=== PATIENT | female | born 1985 | race Caucasian/White ===

== ENCOUNTER 2017-08-18 05:05 | Inpatient (IN) | payer OTHER ==
[2017-08-18 05:23] VITALS: BMI 34.7
[2017-08-18] MEDS ORDERED: Lactated Ringer's 1,000 ML IV SCH ×2 (05:30→13:07)
[2017-08-18] MEDS: Lactated Ringer's 1,000 ML IV SCH ×2 (05:40→06:49)
[2017-08-18 06:15] LABS: BASO % 0.3 % (0.0-2.0); EOS # 0.1 K/uL (0.0-0.7); EOS % 1.1 % (0.0-4.0); HEMOGLOBIN 13.7 g/dL (12.0-16.0); LYMPH # 1.6 K/uL (1.0-4.3); LYMPH % 19.3 % (20.0-40.0); MEAN CELL VOLUME 94.1 fl (81.0-99.0); MEAN CORPUSCULAR HEMOGLOBIN 33.2 pg (27.0-31.0); MEAN CORPUSCULAR HGB CONC 35.3 g/dL (33.0-37.0); MEAN PLATELET VOLUME 8.4 fl (7.2-11.7); MONO # 0.6 K/uL (0.0-0.8); MONO % 7.1 % (0.0-10.0); NEUT # 6.1 K/uL (1.8-7.0); NEUT % 72.2 % (50.0-75.0); NRBC % 0.1 % (0.0-0.0); RBC 4.14 Mil/uL (3.80-5.20); RED CELL DISTRIBUTION WIDTH 13.3 % (11.5-14.5); WHITE BLOOD COUNT 8.5 K/uL (4.8-10.8)
[2017-08-18 06:28] VITALS: O2SAT 98
[2017-08-18] MEDS ORDERED: Oxytocin 30 units/LR 500ML 30 U/500 ML BAG IV ONE (06:49)
[2017-08-18] MEDS ORDERED: Phenylephrine 10 mg/ml Inj ONE (07:24)
[2017-08-18] MEDS ORDERED: ePHEDrine 50 mg/ml Inj ONE (07:24)
[2017-08-18] MEDS ORDERED: Morphine 1 mg/ml preservative-free Inj(Duramorph) ONE (07:25)
--- NOTE | 2017-08-18 07:55 | OBADHP ---
Datetime: 08/18/2017 07:50 IP Chief Complaint Other: gest DM diet Admit Comment, IP Provider: for RC/S declined BTL Abdomen - PN: Abnormal Back - PN: Normal Breast - PN: Normal Lungs - PN: Normal Thyroid - PN: Normal Neurologic - PN: Normal HEENT - PN: Normal General - PN: Normal FHR - Baseline A Provider: 140 Membranes, Provider: Ruptured Comments, ACOG Physical Exam: Abd gravid fundus at term NT, ext no calf tenderness Gestation - Est Wks by US: 39.0 IP Hx Assessment: The History has been Reviewed and is Current IP Chief Complaint: Uterine contractions; Scheduled Section NICHD Variability Prov Fetus A: Minimal - Undetectable to <5bpm NICHD Decel Fetus A IP Provider: None Dilatation, Provider: LUKE BAILON AdmitDate IP: 39.1 IP Adm Impression: Term, intrauterine IP Admit Plan: Admit to unit; Initiate Section protocol
[2017-08-18] MEDS ORDERED: Esmolol 100 mg/10ml Inj IV ONE (09:05)
[2017-08-18] MEDS ORDERED: Oxycodone/Acetaminophen 5/325 mg Tab PO PRN ×4 (09:28→13:07)
[2017-08-18] MEDS ORDERED: DiphenhydrAMINE 50 mg/ml Inj IVP PRN ×2 (09:28→13:07)
--- NOTE | 2017-08-18 10:10 | OBDS ---
DELIVERY PERSONNEL Delivery Doctor: Cal Anguiano MD Scrub Nurse: Lila Sandoval OBT Telephone Operator: Gail Cuenca RN Anesthesiologist: Brian Light MD MATERNAL INFORMATION Delivery Anesthesia: Spinal Medications in Delivery: Pitocin 30 units Estimated Blood Loss (ml): 800 Placenta Cultured: No Maternal Complications: None Provider Comments: see dictated surgeons note LABOR SUMMARY EDC: 08/24/2017 00:00 No. Babies in Womb: 1 Attempted: No LABOR INFORMATION Reason for Induction: Not Applicable Oxytocin: N/A Group B Beta Strep: Positive Steroids Given: None Reason Steroids Not Administered: Not Applicable MEMBRANES Membranes Rupture Method: Artificial Rupture of Membranes: 08/18/2017 09:10 Length of Rupture (hrs): 0.02 Amniotic Fluid Color: Clear Amniotic Fluid Amount: Moderate Amniotic Fluid Odor: Normal STAGES OF LABOR Stage 3 hrs: 0 Stage 3 min: 1 VAGINAL DELIVERY Episiotomy: None Laceration Extension: N/A Laceration Type: None Laceration Repair: Not Applicable Sponge Count Correct: Yes Sharps Count Correct: Yes Count Comment: count correct x3 CSECTION DELIVERY Primary Indication: Repeat Elective Secondary Indication: > 2 Previous CSections CSection Urgency: Elective CSection Incidence: Repeat Labor: No Labor Elective: Elective CSection Incision: Lower Uterine Transverse Uterine Closure: Double-layer closure BABY A INFORMATION Infant Delivery Date/Time: 08/18/2017 09:11 Method of Delivery: Born in Route : No : N/A Forceps: N/A Vacuum Extraction: N/A SHOULDER DYSTOCIA BABY A Infant Delivery Date/Time: 08/18/2017 09:11 PRESENTATION/POSITION BABY A Presentation: Cephalic Cephalic Presentation: Vertex Breech Presentation: N/A PLACENTA INFORMATION BABY A Placenta Delivery Time : 08/18/2017 09:12 Placenta Method of Delivery: Spontaneous Placenta Status: Delivered SCORES BABY A Heart Rate 1 min: >100 bpm Resp Effort 1 min: Good Cry Reflex Irritability 1 min: Cough or Sneeze or Pulls Away Muscle Tone 1 min: Active Motion Color 1 min: Body [place], Extremities Blue Resuscitation Effort 1 min: Tactile Stimulation SCORE 1 MIN: 9 Heart Rate 5 min: >100 bpm Resp Effort 5 min: Good Cry Reflex Irritability 5 min: Cough or Sneeze or Pulls Away Muscle Tone 5 min: Active Motion Color 5 min: Body [place], Extremities Blue Resuscitation Effort 5 min: Tactile Stimulation SCORE 5 MIN: 9 INFANT INFORMATION BABY A Gestational Age at Delivery: 39.0 Gestational Status: Term Infant Outcome : Liveborn Condition : Stable Sex: Male IDENTIFICATION/MEDS BABY A ID Band Number: [id number] ID Band Location: Left Leg; Left Arm WEIGHT/LENGTH BABY A Infant Birthweight (gms): 3240 Infant Weight (lb): 7 Weight (oz): 2 CORD INFORMATION BABY A No. Cord Vessels: 3 Nuchal Cord : N/A Cord Blood Taken: N/A Suction: None ASSESSMENT BABY A Complications: Multiple Late Decels Physical Findings at Delivery: Within Normal Limits Respirations: Grunting Timber Watchman/ALS Called : No Infant Care By: Darlin Haywood Transferred To: Nursery
[2017-08-18] MEDS ORDERED: Clindamycin 600mg/50ml NS 600 MG/50 ML BAG IVPB SCH (10:15)
--- NOTE | 2017-08-18 11:14 | OBPPN ---
Datetime: 08/18/2017 11:07 PP Pain Prov: Within normal limits PP Nausea Prov: Denies PP Flatus Prov: No PP BM Prov: No PP Abdomen/Uterus Prov: Normal PP Vulva/Perineum Prov: Abnormal PP C/S Incision Prov: Normal PP Comments Phys Exam Prov: Pulse 115 BP 109/64 PP Progress Note Prov: Asked to check this paitent (PVT Dr Anguiano) sectioned this morning She had some VB...given IV Pitocin No dizziness IN NAD Abd bandage clean dry intact uterus firm SVE : scant blood noted red; no blood clots A: S/P ...spoke with PMD: will given Methergine/check labs (CB/Pt/PTT) Vital Signs Provider PP: Reviewed; Within Normal Limits
[2017-08-18 11:28] LABS: MEAN CELL VOLUME 95.2 fl (81.0-99.0); MEAN CORPUSCULAR HEMOGLOBIN 32.8 pg (27.0-31.0); MEAN CORPUSCULAR HGB CONC 34.5 g/dL (33.0-37.0); RBC 3.94 Mil/uL (3.80-5.20); RED CELL DISTRIBUTION WIDTH 13.7 % (11.5-14.5); WHITE BLOOD COUNT 10.3 K/uL (4.8-10.8)
[2017-08-18 11:38] LABS: PARTIAL THROMBOPLASTIN TIME 27.2 Seconds (25.6-37.1); PROTHROMBIN TIME 11.1 Seconds (9.8-13.1)
[2017-08-18] MEDS: Clindamycin 600mg/50ml NS 600 MG/50 ML BAG IVPB SCH (16:08)
[2017-08-19] MEDS: Clindamycin 600mg/50ml NS 600 MG/50 ML BAG IVPB SCH (01:00)
[2017-08-19 06:45] LABS: HEMOGLOBIN 11.4 g/dL (12.0-16.0); MEAN CELL VOLUME 94.5 fl (81.0-99.0); MEAN CORPUSCULAR HEMOGLOBIN 33.8 pg (27.0-31.0); MEAN CORPUSCULAR HGB CONC 35.7 g/dL (33.0-37.0); RBC 3.36 Mil/uL (3.80-5.20); RED CELL DISTRIBUTION WIDTH 13.7 % (11.5-14.5); WHITE BLOOD COUNT 10.6 K/uL (4.8-10.8)
--- NOTE | 2017-08-19 09:18 | OBPPN ---
Datetime: 08/19/2017 09:13 PP Pain Prov: Within normal limits PP Pain Prov comment: Denies SOB, chest or leg pains PP Nausea Prov: Denies PP Nausea Prov comment: voided well PP Breasts Prov: Normal PP Lungs Prov: Normal PP Abdomen/Uterus Prov: Abnormal PP Lochia Prov: Normal PP Vulva/Perineum Prov: Normal PP CVA Tenderness Prov: Normal PP Extremities Prov: Normal PP C/S Incision Prov: Normal PP Progress Prov: Normal PP Comments Phys Exam Prov: breast not engorged Abd soft ND fundus firm below the umb. Dressing int act no sign of active bleeding Lokia mod, ext no calf tenderness PP Impression Prov: Normal progression PP Plan Prov: Continue present management PP Progress Note Prov: CBC stable Advance diet as tolerated OOB and ambulation Continue po care IP PP Procedures: None
--- NOTE | 2017-08-20 07:49 | OBPPN ---
Datetime: 08/20/2017 07:44 PP Pain Prov: Within normal limits PP Pain Prov comment: No SOB, chest or leg pains PP Nausea Prov: Denies PP Flatus Prov: Yes PP BM Prov: No PP Nausea Prov comment: Voiding well PP Breasts Prov: Normal PP Lungs Prov: Normal PP Abdomen/Uterus Prov: Abnormal PP Lochia Prov: Normal PP Vulva/Perineum Prov: Normal PP CVA Tenderness Prov: Normal PP Extremities Prov: Normal PP C/S Incision Prov: Normal PP Progress Prov: Normal PP Comments Phys Exam Prov: breast not engorged NT; Abd soft nd, fundus firm below umb Dressing intact removed and no active bleeding or suppt Ext n o calf tenderness PP Impression Prov: Normal progression PP Plan Prov: Continue present management PP Progress Note Prov: Dulcolax suppt and OOB and ambulation Continue PO care IP PP Procedures: None Vital Signs Provider PP: Reviewed
--- NOTE | 2017-08-21 08:28 | OP ---
PROCEDURE DATE: 08/18/2017 PREOPERATIVE DIAGNOSES: 1. at term. 2. Previous section x2 in early labor. POSTOPERATIVE DIAGNOSES: 1. at term. 2. Previous section x2 in early labor. 3. Pelvis adhesion. PROCEDURE PERFORMED: Repeat low transverse segment section. SURGEON: Jesus Anguiano MD SECURITY OFFICERS AND GUARDS: Ricki Lloyd MD who was there for the entire duration of the case. Framing Machine Tender needed in order to provide assistance in positioning the patient, opening of the abdomen, delivery of the baby, and closure of the abdomen. ANESTHESIA USED: Spinal. ANESTHESIA ADMINISTERED BY: Alfonso Light MD ESTIMATED BLOOD LOSS: 800 mL. DRAINS USED: None. REPLACEMENTS USED: None. FINDINGS: 1. Delivery of a living baby boy, baby appears term, baby cried spontaneously. Pediatrist in attendance. Apgars score of 9 and 9. 2. Amniotic fluid clear. 3. Placenta complete and intact. 4. Both tubes and ovaries appeared grossly within normal limits to inspection bilaterally. 5. Adhesion of the bladder to the lower abdominal wall noted to be present. DESCRIPTION OF PROCEDURE: The patient was taken to the operating room and placed on the operating room table in a supine position with an indwelling Stern catheter in the bladder draining clear fluid. At this time, spinal anesthesia was then induced and the patient was then replaced in the supine position. Venodyne boots were applied to both legs. The abdomen was then draped and prepped in the usual sterile manner. Following this, anesthesia tested and found to be well secured and a Pfannenstiel incision was then made along the edges of the previous incision. The incision was made using sharp dissection. Hemostasis was obtained by means of electrocoagulation. Subcutaneous tissue was also entered using sharp dissection. The fascia was then identified, was then entered in the midline using sharp dissection. The incision of the fascia was then extended laterally on each direction using sharp dissection. The rectus muscle was then identified and was then slit in the midline, exposing the peritoneum. The peritoneal layer was then picked up using 2 Arelis clamps, retracted superiorly, and then entered using sharp dissection. Incision on the peritoneum was then extended superiorly and inferiorly under direct visualization. Bladder was then identified and adhesions to the lower abdominal area noted to be present and the bladder was then retracted inferiorly using the Andrea retractor. The lower transverse segment of the uterus was then identified and an incision was then made in the low transverse segment of the uterus. Upon entering the uterine cavity, clear fluid noted to be present. At this time, we then proceeded to extending the incision laterally using sharp dissection. Using amnioscopy procedure, a living baby boy was then delivered. The baby was immediately aspirated using the bulb suction. The baby cried spontaneously. The umbilicus was then doubly clamped, cut, and the baby handed to the pediatric personnel who was standing by. Samples of cord blood were then obtained and the placenta was then delivered complete and intact. The uterus was then exteriorized in order to provide better visualization. Uterus was massaged and the uterine cavity was then cleaned using moist lap pads. At this time, the uterus contracted well. Uterine incision was then secured using multiple T clamps. It was then approximated using 0 Vicryl suture in a continuous interlocking manner. The second layer was also applied using a Vicryl suture in a continuous manner. Hemostasis was checked and found to be well secured. Both tubes and ovaries appeared at this time grossly within normal limits to inspection bilaterally. Following this, free amniotic fluid and blood were then evacuated from the pelvic cavity. The pelvic cavity was then irrigated using saline solution. The uterus was allowed to retract back into its original position. All operative areas were checked and hemostatically secured and we then proceeded to close the peritoneum using 0 Vicryl suture in a continuous manner. Rectus muscle was approximated at the midline also using 0 Vicryl suture in a continuous manner. At this time, the fascia was then identified, it was then approximated using 1 Vicryl suture in a continuous manner. Fascia was then checked and found to be free of defect. Subcutaneous tissue was then irrigated using saline solution and approximated using several interrupted 2-0 plain sutures. The skin was then approximated using a 3-0 Prolene in a subcuticular fashion. Steri-Strips were then applied. At this time, sponge, instrument, and needle counts were correct x3. Free fluid noted in the Stern catheter clear. The patient tolerated the procedure well. There were no complications. She was transferred to the recovery room in satisfactory condition. Jesus Anguiano MD [facility] # [id number] [place]
--- NOTE | 2017-08-21 10:38 | OBPPN ---
Datetime: 08/21/2017 10:34 PP Pain Prov: Within normal limits PP Pain Prov comment: No SOB, chest or leg pains PP Nausea Prov: Denies PP Flatus Prov: Yes PP BM Prov: Yes PP Nausea Prov comment: voiding well PP Breasts Prov: Normal PP Lungs Prov: Normal PP Abdomen/Uterus Prov: Abnormal PP Lochia Prov: Normal PP Vulva/Perineum Prov: Normal PP CVA Tenderness Prov: Normal PP Extremities Prov: Normal PP C/S Incision Prov: Normal PP Progress Prov: Normal PP Comments Phys Exam Prov: breast not engorged NT, abd soft ND fundus firm at umb NT, incision lisa n and dry no suppt or discharge no active bleeding no sign of infection Ext no calf tenderness PP Impression Prov: Normal progression PP Plan Prov: Discharge PP Progress Note Prov: D/C home with instructions and appt to office 1 wk IP PP Procedures: None Vital Signs Provider PP: Reviewed
--- NOTE | 2017-08-21 10:41 | OBDCSUM ---
Datetime: 08/21/2017 10:38 Discharged to, Provider: Home Follow up at, Provider: Dr Silvio Comer Instr Activity: Bedrest; May be up to bathroom; May be up for meals; May Shower Disch Instr Diet: Regular Discharge Instructions, Provider: Routine instructions given Discharge Diagnosis, Provider: Term Delivered Discharge Time: 08/21/2017 10:38 Follow up in weeks, Provider: 1 wk Disch Referrals: None Contraception discussed, Prov: Yes Disch Activity Restrictions: No exercising; No lifting; No driving; Minimize walking; Minimize stair -climbing; No sexual activity; Nothing in vagina - Smyer, tampons, douche Discharge Comment, Provider: rx Percocet given and continue po care Contraception after Delivery: Undecided Datetime: 08/21/2017 10:35 Discharged to, Provider: Home Follow up at, Provider: Dr. Silvio Comer Instr Activity: Normal activity Disch Instr Diet: Regular Discharge Time: 08/21/2017 12:00 Follow up in weeks, Provider: 1 Week Disch Referrals: None Disch Activity Restrictions: No sexual activity; Nothing in vagina - Smyer, tampons, douche
[2017-08-21 15:48] VITALS: BP 105/64; PULSE 81; RESP 20; TEMP 98.2
== END 2017-08-21 11:38 | disposition home or self-care (01) | DRG 371 ==
LOC: H.EROB2 05:05 → H.L&D 05:22 → H.OB/GYN 12:49
PROVIDERS: ADMIT Specialist; ATTEND Specialist
PROC: 10D00Z1 Extraction of Products of Conception, Low, Open Approach (ICD-10-PCS; principal; 2017-08-18)
PROC: 4A1HXCZ Monitoring of Products of Conception, Cardiac Rate, External Approach (ICD-10-PCS; 2017-08-18)
DX: O34.219 Maternal care for unspecified type scar from previous cesarean delivery (principal); O24.429 Gestational diabetes mellitus in childbirth, unspecified control; N85.8 Other specified noninflammatory disorders of uterus; O76 Abnormality in fetal heart rate and rhythm complicating labor and delivery; K66.0 Peritoneal adhesions (postprocedural) (postinfection); Z37.0 Single live birth; Z3A.39 39 weeks gestation of pregnancy

== ENCOUNTER 2017-09-16 10:22 | Emergency (ER) | payer OTHER ==
[2017-09-16 10:24] VITALS: BMI 29.2
[2017-09-16] MEDS ORDERED: Clindamycin 600mg/50ml D5W 600 MG/50 ML VIAL IVPB ONE (12:00)
[2017-09-16] MEDS ORDERED: Sodium Chloride 0.9% 1,000 ML IV SCH (12:00)
--- NOTE | 2017-09-16 12:00 | ED PDOC ---
HPI: Abdomen Time Seen by Provider: 09/16/17 11:02 Chief Complaint (Nursing): Abdominal Pain Chief Complaint (Provider): Cellulitis History Per: Patient History/Exam Limitations: no limitations Onset/Duration Of Symptoms: Days (4), Gradual, Worse Since (three days) Outside of [place] travel?: No Current Symptoms Are (Timing): Still Present Context: Other (pt believes it is associated with a surgical incision made about 08/16 (one month ago)) Severity: Mild Quality Of Discomfort: Aching Associated Symptoms: Fever (fever resolved on presentation). denies: Nausea, Vomiting, Diarrhea Exacerbating Factors: None Last Bowel Movement: Today Additional Complaint(s): Pt had a performed 08/16 (one month ago from presentation) and presents today with a concern for pain under her incision, erythema and warmth; pt denies NVD but does indicate that she had a fever of 101 last evening (pt is afebrile without medication on presentation); pt denies other complaints and indicates that her baby is doing well and is . Pt notes an allergy to PCN Past Medical History Reviewed: Historical Data, Nursing Documentation, Vital Signs Vital Signs: Last Vital Signs Temp 98.4 F 09/16/17 10:25 Pulse 100 H 09/16/17 10:25 Resp 17 09/16/17 10:25 BP 113/73 09/16/17 10:25 Pulse Ox 100 09/16/17 14:58 - Medical History PMH: Denies: Depression, Diabetes, HTN - Surgical History Surgical History: Cholecystectomy, Tonsillectomy - Family History Family History: States: Unknown Family Hx - Home Medications Home Medications: Ambulatory Orders Medication Instructions Recorded Clindamycin [Cleocin] 300 mg PO QID #40 cap 09/16/17 - Allergies Allergies/Adverse Reactions: Allergies Allergy/AdvReac Type Severity Reaction Status Date / Time Penicillins Allergy Mild RASH Verified 09/16/17 10:33 Review of Systems ROS Statement: Except As Marked, All Systems Reviewed And Found Negative Skin: Positive for: Other (warmth and erythema underlying area of and approximately 7cm in diameter; region marked with surgical marking pen at 1200 and noted as 09/16) Physical Exam - Reviewed Nursing Documentation Reviewed: Yes Vital Signs Reviewed: Yes - Physical Exam Appears: Positive for: Well, Non-toxic, No Acute Distress. Negative for: Uncomfortable Head Exam: Positive for: ATRAUMATIC, NORMAL INSPECTION, NORMOCEPHALIC Skin: Positive for: Warm, Pallor (warmth and erythema underlying area of c- section and approximately 7cm in diameter; region marked with surgical marking pen at 1200 and noted as /25) Neck: Positive for: Normal, Painless ROM, Supple. Negative for: Decreased ROM Cardiovascular/Chest: Positive for: Regular Rate, Rhythm, Chest Non Tender. Negative for: Edema, Gallop, Bradycardia, Tachycardia, Ectopy, Friction Rub Respiratory: Positive for: Normal Breath Sounds. Negative for: Decreased Breath Sounds, Accessory Muscle Use, Crackles, Rales, Rhonchi, Stridor, Wheezing , Respiratory Distress Pulses-Carotid (L): 2+ Pulses-Carotid (R): 2+ Pulses-Post. Tibialis (L): 2+ Pulses-Post. Tibialis (R): 2+ Pulses-Radial (L): 2+ Pulses-Radial (R): 2+ Gastrointestinal/Abdominal: Positive for: Normal Exam, Bowel Sounds (active in all four quadrants), Soft, Other (see "skin" above). Negative for: Tenderness, Distended Lymphatic: Positive for: Normal Exam - Laboratory Results Result Diagrams: 09/16/17 12:00 09/16/17 12:00 - ECG O2 Sat by Pulse Oximetry: 100 Medical Decision Making Medical Decision Making: R/o Abscess Suspect Cellulitis U/S CBC CMP no clinically significant findings in blood worl U/S Results PROCEDURE: Subcutaneous/ soft tissue ultrasound dated 09/16/2017. HISTORY: Cellulitis; rule out abscess. COMPARISON: No relevant prior studies available for comparison although correlation made with CT scan chest abdomen pelvis dated 10/07/2013 which did image the subcutaneous tissues of the lower abdomen and upper pelvis 3 planes. TECHNIQUE: Transabdominal ultrasound of the targeted to the subcutaneous tissues mid lower abdomen/ upper pelvis region just inferior to the umbilicus performed. FINDINGS: The current study reveals mild heterogeneous infiltration changes within the subcutaneous tissues of the mid lower abdomen/ upper pelvis which could represent a localized cellulitis. No drainable fluid or abscess collections are identified. IMPRESSION: Mild infiltration changes within the subcutaneous tissues mid lower abdomen/ upper pelvis which may represent cellulitis. No drainable fluid or abscess collections identified. Dx- Cellulitis without abscess Tx- clidamycin (due to breast feeding) Disposition - Clinical Impression Clinical Impression: Cellulitis Discussed With Dr.: Jesus Anguiano (agrees with the plan to ultrasound, IV abx and release on PO abx) Doctor Will See Patient In The: Office - Disposition Disposition: Routine/Home Disposition Time: 15:01 Condition: GOOD Prescriptions: Clindamycin [Cleocin] 300 mg PO QID #40 cap Instructions: Cellulitis and Erysipelas (Skin Infections), Cellulitis (Skin Infection), Adult (DC) Forms: [facility] (Ukrainian)
[2017-09-16] MEDS ORDERED: Clindamycin 600mg/50ml NS 600 MG/50 ML BAG IVPB ONE (12:01)
[2017-09-16 12:07] LABS: BASO # 0.1 K/uL (0.0-0.2); BASO % 0.6 % (0.0-2.0); EOS # 0.2 K/uL (0.0-0.7); EOS % 2.1 % (0.0-4.0); HEMOGLOBIN 12.8 g/dL (12.0-16.0); LYMPH # 1.3 K/uL (1.0-4.3); LYMPH % 12.7 % (20.0-40.0); MEAN CELL VOLUME 89.8 fl (81.0-99.0); MEAN CORPUSCULAR HGB CONC 34.5 g/dL (33.0-37.0); MEAN PLATELET VOLUME 7.2 fl (7.2-11.7); MONO # 0.6 K/uL (0.0-0.8); MONO % 6.1 % (0.0-10.0); NEUT % 78.5 % (50.0-75.0); RBC 4.12 Mil/uL (3.80-5.20); RED CELL DISTRIBUTION WIDTH 13.5 % (11.5-14.5); WHITE BLOOD COUNT 10.2 K/uL (4.8-10.8)
[2017-09-16 12:15] LABS: SQUAMOUS EPITHIAL 1 /hpf (0-5); URINE BILIRUBIN NEGATIVE (NEGATIVE); URINE BLOOD NEGATIVE (NEGATIVE); URINE CLARITY SLIGHTY-CLOUDY (Clear); URINE COLOR YELLOW (YELLOW); URINE GLUCOSE (UA) NEG (Normal); URINE LEUKOCYTE ESTERASE NEG Leu/uL (Negative); URINE PROTEIN 30 mg/dL (NEGATIVE); URINE UROBILINOGEN 0.2-1.0 mg/dL (0.2-1.0)
[2017-09-16 12:19] LABS: ALB/GLOB RATIO 1.2 (1.0-2.1); ALBUMIN 3.9 g/dL (3.5-5.0); ALT/SGPT 35 U/L (9-52); AST/SGOT 16 U/L (14-36); BLOOD UREA NITROGEN 12 mg/dl (7-17); GFR AFRICAN-AMERICAN > 60; GFR NON-AFRICAN AMERICAN > 60
--- NOTE | 2017-09-16 14:41 | US ---
PROCEDURE: Subcutaneous/ soft tissue ultrasound dated 09/16/2017. HISTORY: Cellulitis; rule out abscess. COMPARISON: No relevant prior studies available for comparison although correlation made with CT scan chest abdomen pelvis dated 10/07/2013 which did image the subcutaneous tissues of the lower abdomen and upper pelvis 3 planes. TECHNIQUE: Transabdominal ultrasound of the targeted to the subcutaneous tissues mid lower abdomen/ upper pelvis region just inferior to the umbilicus performed. FINDINGS: The current study reveals mild heterogeneous infiltration changes within the subcutaneous tissues of the mid lower abdomen/ upper pelvis which could represent a localized cellulitis. No drainable fluid or abscess collections are identified. IMPRESSION: Mild infiltration changes within the subcutaneous tissues mid lower abdomen/ upper pelvis which may represent cellulitis. No drainable fluid or abscess collections identified.
[2017-09-16 16:10] VITALS: TEMP 98.8
[2017-09-16 16:15] VITALS: BP 108/70; PULSE 72; RESP 18; O2SAT 99
== END 2017-09-16 16:16 | disposition home or self-care (01) ==
LOC: H.ER 10:22
DX: L03.311 Cellulitis of abdominal wall (principal); Z88.0 Allergy status to penicillin
CPT/HCPCS: 76881; 80053; 81003; 81025; 85025; 87040; 87086; 96365; 96366; 96367; 99284; J7040

== ENCOUNTER 2017-09-18 17:25 | Inpatient (IN) | payer OTHER ==
[2017-09-18 17:26] VITALS: BMI 29.2
[2017-09-18] MEDS ORDERED: Gentamicin 60mg/50ml NS 60 MG/50 ML BAG IVPB STA (17:56)
--- NOTE | 2017-09-18 18:28 | ED PDOC ---
HPI: Abdomen Time Seen by Provider: 09/18/17 17:43 Chief Complaint (Nursing): Abnormal Skin Integrity Chief Complaint (Provider): Abnormal Skin Integrity History Per: Patient History/Exam Limitations: no limitations Onset/Duration Of Symptoms: Days (x2) Current Symptoms Are (Timing): Still Present Additional Complaint(s): 32 year old female presents to the emergency department with a complaint of abdominal pain associated with low grade fever ongoing for 2 days. Patient was recently treated for cellulitis status post and given Clindamycin, which did not alleviate symptoms. She denies any further medical complaints. PMD: none provided Past Medical History Reviewed: Historical Data, Nursing Documentation, Vital Signs Vital Signs: Last Vital Signs Temp 98 F 09/18/17 17:29 Pulse 97 H 09/18/17 17:29 Resp 18 09/18/17 17:29 BP 114/72 09/18/17 17:29 Pulse Ox 100 09/18/17 18:38 - Medical History PMH: No Chronic Diseases Denies: Depression, Diabetes, HTN - Surgical History Surgical History: Cholecystectomy, Tonsillectomy, - Family History Family History: States: Unknown Family Hx - Home Medications Home Medications: Ambulatory Orders Medication Instructions Recorded Clindamycin [Cleocin] 300 mg PO QID #40 cap 09/16/17 - Allergies Allergies/Adverse Reactions: Allergies Allergy/AdvReac Type Severity Reaction Status Date / Time Penicillins Allergy Mild RASH Verified 09/18/17 17:29 Review of Systems ROS Statement: Except As Marked, All Systems Reviewed And Found Negative Constitutional: Positive for: Fever (low grade) Gastrointestinal: Positive for: Abdominal Pain (with cellulitis) Physical Exam - Reviewed Nursing Documentation Reviewed: Yes Vital Signs Reviewed: Yes - Physical Exam Appears: Positive for: Non-toxic, No Acute Distress Cardiovascular/Chest: Positive for: Regular Rate, Rhythm Respiratory: Positive for: Normal Breath Sounds. Negative for: Wheezing, Respiratory Distress Gastrointestinal/Abdominal: Positive for: Soft, Other (erythema and induration noted to area of cellulitis which has progressed beyond demarcation indicated 2 days ago; central area of fluctuance without discharge) Extremity: Positive for: Normal ROM Neurologic/Psych: Positive for: Alert, Oriented - ECG O2 Sat by Pulse Oximetry: 100 (RA) Pulse Ox Interpretation: Normal Medical Decision Making Medical Decision Making: Initial Impression: Abdominal Pain Initial Plan: * VBG * CMP * Urine * Urine dipstick * CBC * Gentamicin 60m gin 50ml IVPB * Vancomycin inj 250ml IVPB * Blood culture * US soft tissue Scribe Attestation: Documented by Tootie Panda, acting as a scribe for Ricki Luevano MD. Provider Scribe Attestation: All medical record entries made by the Scribe were at my direction and personally dictated by me. I have reviewed the chart and agree that the record accurately reflects my personal performance of the history, physical exam, medical decision making, and the department course for this patient. I have also personally directed, reviewed, and agree with the discharge instructions and disposition. Disposition - Clinical Impression Clinical Impression: Cellulitis, Failure of outpatient treatment - Patient ED Disposition Is Patient to be Admitted: Yes - Disposition Disposition Time: 18:40 Condition: FAIR - Pt Status Changed To: Hospital Disposition Of: Inpatient - Admit Certification Admit to Inpatient:: After my assessment, the patient will require hospitalization for at least two midnights. This is because of the severity of symptoms shown, intensity of services needed, and/or the medical risk in this patient being treated as an outpatient. - POA Present On Arrival: None
--- NOTE | 2017-09-18 18:36 | US ---
PROCEDURE: INFRAUMBILICAL SOFT TISSUE ULTRASOUND HISTORY: r/o sub q abscess COMPARISON: Infraumbilical soft tissue ultrasound 09/16/2017. TECHNIQUE: High-frequency ultrasonography was performed using a linear transducer at the soft tissues immediately inferior to the umbilicus but there is apparent cellulitis and clinical concern for abscess. FINDINGS: Examination is reiterated with no distinct abscess appreciate although extensive edematous changes seen throughout the interstices of the subcutaneous fat of the anterior abdominal wall. No defined mass identified either. IMPRESSION: Reiteration of cellulitis of the infra umbilical anterior abdominal wall without definite abscess formation at this time.
[2017-09-18 19:11] LABS: BASO # 0.1 K/uL (0.0-0.2); BASO % 0.8 % (0.0-2.0); EOS # 0.3 K/uL (0.0-0.7); EOS % 1.7 % (0.0-4.0); HEMOGLOBIN 12.6 g/dL (12.0-16.0); LYMPH # 1.2 K/uL (1.0-4.3); LYMPH % 7.7 % (20.0-40.0); MEAN CORPUSCULAR HEMOGLOBIN 30.7 pg (27.0-31.0); MEAN CORPUSCULAR HGB CONC 34.1 g/dL (33.0-37.0); MEAN PLATELET VOLUME 7.2 fl (7.2-11.7); MONO # 0.7 K/uL (0.0-0.8); MONO % 4.5 % (0.0-10.0); NEUT # 13.3 K/uL (1.8-7.0); NEUT % 85.3 % (50.0-75.0); PLATELET COUNT 363 K/uL (130-400); WHITE BLOOD COUNT 15.6 K/uL (4.8-10.8)
[2017-09-18 19:49] LABS: ALB/GLOB RATIO 1.1 (1.0-2.1); ALBUMIN 3.9 g/dL (3.5-5.0); ALT/SGPT 30 U/L (9-52); AST/SGOT 15 U/L (14-36); BLOOD UREA NITROGEN 8 mg/dl (7-17); CALCIUM 9.3 mg/dL (8.4-10.2); GFR AFRICAN-AMERICAN > 60; GFR NON-AFRICAN AMERICAN > 60
[2017-09-18 21:14] LABS: VENOUS BLOOD GAS BASE EXCESS 3.3 mmol/L (0.0-2.0); VENOUS BLOOD GAS PCO2 45 mmHg (40-60); VENOUS BLOOD GAS PO2 29 mm/Hg (30-55); VENOUS BLOOD PH 7.41 (7.32-7.43)
[2017-09-18 21:24] LABS: ANISOCYTOSIS SLIGHT; EOSINOPHIL 1 % (0-7); HYPOCHROMIC SLIGHT; LYMPHOCYTE 10 % (20-50); MONOCYTE 6 % (0-10); NEUTROPHIL 83 % (42-75); PLATELET ESTIMATE NORMAL (NORMAL); TEARDROP CELLS SLIGHT; TOTAL CELLS COUNTED 100
[2017-09-18 21:25] LABS: LARGE PLATELETS PRESENT
[2017-09-18] MEDS ORDERED: Oxycodone/Acetaminophen 5/325 mg Tab PO PRN (23:15)
--- NOTE | 2017-09-18 23:46 | CP.PCM.PN ---
Subjective - Date & Time of Evaluation Date of Evaluation: 09/17/17 Time of Evaluation: 23:44 - Subjective Subjective: I D NOTE PATIENT POST c SURGICAL SITE INFECTION FEVER CULTURES TAKEN AWAIT CULTURES RX FOR PRESENT c VANCOMYCIN/GENTAMICIN Objective - Vital Signs/Intake and Output Vital Signs (last 24 hours): Temp Pulse Resp BP Pulse Ox 100.1 F H 90 20 108/81 100 09/18/17 21:15 09/18/17 20:52 09/18/17 20:52 09/18/17 20:52 09/18/17 20:52 - Medications Medications: Current Medications Vancomycin HCl 1 gm/ Sodium (Chloride) 250 mls @ 166.667 mls/hr IVPB Q12 LEISA PRN Reason: Protocol Gentamicin Sulfate 80 mg/ (Sodium Chloride) 102 mls @ 100 mls/hr IVPB Q12 LEISA PRN Reason: Protocol Ibuprofen (Motrin Tab) 600 mg PO Q6 PRN PRN Reason: Pain, Mild (1-3) Oxycodone/Acetaminophen (Percocet 5/325 Mg Tab) 1 tab PO Q4 PRN PRN Reason: Pain, moderate (4-7) Stop: 09/21/17 23:16 - Labs Labs: 09/18/17 19:07 09/18/17 19:07
[2017-09-19 06:40] LABS: HEMOGLOBIN 11.6 g/dL (12.0-16.0); MEAN CELL VOLUME 89.7 fl (81.0-99.0); MEAN CORPUSCULAR HEMOGLOBIN 30.4 pg (27.0-31.0); MEAN CORPUSCULAR HGB CONC 33.9 g/dL (33.0-37.0); RBC 3.82 Mil/uL (3.80-5.20); RED CELL DISTRIBUTION WIDTH 13.9 % (11.5-14.5)
[2017-09-19 07:14] LABS: ALBUMIN 3.1 g/dL (3.5-5.0); ALT/SGPT 20 U/L (9-52); AST/SGOT 20 U/L (14-36); BLOOD UREA NITROGEN 9 mg/dl (7-17); GFR AFRICAN-AMERICAN > 60; GFR NON-AFRICAN AMERICAN > 60
[2017-09-19] MEDS: Gentamicin 80mg/50ml NS 80 MG/50 ML BAG IVPB SCH ×2 (09:49→20:30)
--- NOTE | 2017-09-19 20:17 | CON ---
INFECTIOUS DISEASE CONSULT DATE: HISTORY OF PRESENT ILLNESS: The patient is a 32-year-old female who underwent a approximately a month ago on 08/18/2017 who had an uneventful postoperative course and was sent home for 5 days later. Two weeks later, she began developing redness around the side with some inflammation and a bubbling in the certain area or raised area in that area. There was no drainage from the wound site. She saw her doctor who was given oral clindamycin, which did not help her situation, came to the emergency room with complaining of fever, chills and her temperature was 102. The patient was given a dose of vancomycin and gentamicin in the emergency room last night. LABORATORY DATA: Microbiology; we have no cultures available as yet, although the urine is negative and the blood cultures are negative so far. White count was 15.6 on 09/18/2017, today on 09/19/2017, it is 14, hemoglobin is 11.6, polys are 85, and there are no bands. Creatinine is 0.7 and GFR is greater than 60. Ultrasound shows reiteration of cellulitis of the infraumbilical anterior abdominal wall without definite abscess formation at this time. The patient has temperature of 99.1 today. PHYSICAL EXAMINATION: GENERAL: The patient is a pleasant female giving an excellent history. She is alert, cooperative, and oriented to time and place. HEENT: Conjunctivae are pale. NECK: Supple. LUNGS: Clear. HEART: Regular sinus rhythm. ABDOMEN: Post- section changes. She has an area underneath the umbilicus of cellulitis somewhat over the mid section, but mostly towards the left inguinal to left lower quadrant and below the umbilicus, there is an area that raised and appears fluctuant. EXTREMITIES: No CCE. At present time, she states she is improving. She is on vancomycin 1 g every 12 hours along with gentamicin 80 mg IV piggyback every 12 hours. We will continue with this regimen not adding any further antibiotics today. We will reevaluate based on clinical findings tomorrow. Also discuss not doing any breast feeding or using this milk or any breast feeding at this time. Bradley Ruelas MD [facility] # [id number] MARSH[place]
[2017-09-20 07:35] LABS: BASO % 0.4 % (0.0-2.0); EOS # 0.5 K/uL (0.0-0.7); EOS % 3.7 % (0.0-4.0); HEMOGLOBIN 11.4 g/dL (12.0-16.0); LYMPH % 8.3 % (20.0-40.0); MEAN CELL VOLUME 89.7 fl (81.0-99.0); MEAN CORPUSCULAR HEMOGLOBIN 30.3 pg (27.0-31.0); MEAN CORPUSCULAR HGB CONC 33.8 g/dL (33.0-37.0); MEAN PLATELET VOLUME 7.4 fl (7.2-11.7); MONO # 0.7 K/uL (0.0-0.8); MONO % 5.5 % (0.0-10.0); NEUT # 10.1 K/uL (1.8-7.0); NEUT % 82.1 % (50.0-75.0); RBC 3.77 Mil/uL (3.80-5.20); RED CELL DISTRIBUTION WIDTH 13.7 % (11.5-14.5); WHITE BLOOD COUNT 12.3 K/uL (4.8-10.8)
[2017-09-20 08:02] LABS: ALBUMIN 3.2 g/dL (3.5-5.0); ALT/SGPT 31 U/L (9-52); AST/SGOT 22 U/L (14-36); BLOOD UREA NITROGEN 10 mg/dl (7-17); GFR AFRICAN-AMERICAN > 60; GFR NON-AFRICAN AMERICAN > 60
[2017-09-20] MEDS: Gentamicin 80mg/50ml NS 80 MG/50 ML BAG IVPB SCH ×2 (08:35→20:30)
[2017-09-20] MEDS ORDERED: Hydrogen Peroxide 3% Soln (480ml) TP ONE (09:34)
--- NOTE | 2017-09-20 11:39 | CP.PCM.HP ---
History of Present Illness - History of Present Illness History of Present Illness: CC abb pains and redness getting worse. Pt is s/p repeat C/S on 08/18/17 surgery and post op being unremarkable Seen in office early last wk with area of induration at umb area not red no C/F and suspected hematoma was entertained Sono ordered but couple of days latter came to ER and now cellulitis was apparent and CBC ok and placed on po Clinda since allergic to PNC. Pt states not getting any better and returned to ER and area of cellulitis not improving but becoming worse CBC now with elevated WBC and admitted for IV antibiotics This am area opened up and drainage of pus noted. Present on Admission - Present on Admission Any Indicators Present on Admission: Yes - Notes: Notes:: abdominal cellulitis not responding to po meds Review of Systems - Constitutional Constitutional: As Per HPI - Breasts Additional comments: breast feeding no engorgement - Cardiovascular Cardiovascular: As Per HPI - Respiratory Respiratory: As Per HPI - Gastrointestinal Gastrointestinal: As Per HPI - Reproductive: Female Reproductive:Female: As Per HPI - Menstruation Additional comments: s/p RC/s see HPI - Integumentary Additional comments: cellulitis at just below umb area but Pfanesteal incision clean and dry and healing well Past Patient History - Past Medical History & Family History Past Medical History?: No Past Family History: Reviewed and not pertinent - Past Social History Smoking Status: Never Smoked Alcohol: None Drugs: Denies - CARDIAC Hx Cardiac Disorders: No - PULMONARY Hx Respiratory Disorders: No - NEUROLOGICAL Hx Neurological Disorder: No - HEENT Hx HEENT Problems: No - RENAL Hx Chronic Kidney Disease: No - ENDOCRINE/METABOLIC Hx Endocrine Disorders: No - HEMATOLOGICAL/ONCOLOGICAL Hx Blood Disorders: No - INTEGUMENTARY Hx Dermatological Problems: No Hx Cellulitis: Yes (See HPI) - MUSCULOSKELETAL/RHEUMATOLOGICAL Hx Musculoskeletal Disorders: No Hx Falls: No - GASTROINTESTINAL Hx Gastrointestinal Disorders: Yes Hx Gall Bladder Disease: Yes - GENITOURINARY/GYNECOLOGICAL Hx Genitourinary Disorders: No - PSYCHIATRIC Hx Psychophysiologic Disorder: No Hx Substance Use: No - SURGICAL HISTORY Hx Surgeries: Yes Hx Section: Yes (x3) Hx Cholecystectomy: Yes Hx Tonsillectomy: Yes - ANESTHESIA Hx Anesthesia: Yes Hx Anesthesia Reactions: No Hx Malignant Hyperthermia: No Has any member of the family had a problem w/ anesthesia?: No Meds Allergies/Adverse Reactions: Allergies Allergy/AdvReac Type Severity Reaction Status Date / Time Penicillins Allergy Mild RASH Verified 09/18/17 17:29 Physical Exam - Constitutional Appears: No Acute Distress - Head Exam Head Exam: ATRAUMATIC - Respiratory Exam Respiratory Exam: NORMAL BREATHING PATTERN - Cardiovascular Exam Cardiovascular Exam: REGULAR RHYTHM - GI/Abdominal Exam Additional comments: BS present Abd not distended area of cellulitis in abd below the umb with leakege on the mid area of pus like fluid cult done and area cleaned and packed with iodoform packing and dressed - Extremities Exam Additional comments: no edema or calf tenderness - Neurological Exam Neurological exam: Alert, Oriented x3 - Psychiatric Exam Psychiatric exam: Normal Mood Results - Vital Signs Recent Vital Signs: Last Vital Signs Temp 99.3 F 09/20/17 08:03 Pulse 101 H 09/20/17 08:03 Resp 20 09/20/17 08:03 BP 98/62 L 09/20/17 08:03 Pulse Ox 97 09/20/17 08:03 - Labs Result Diagrams: 09/20/17 06:40 09/20/17 06:40 Labs: Laboratory Results - last 24 hr 09/20/17 09/20/17 06:40 06:40 WBC 12.3 H RBC 3.77 L Hgb 11.4 L Hct 33.8 L MCV 89.7 MCH 30.3 MCHC 33.8 RDW 13.7 Plt Count 344 MPV 7.4 Neut % (Auto) 82.1 H Lymph % (Auto) 8.3 L Fulton % (Auto) 5.5 Eos % (Auto) 3.7 Baso % (Auto) 0.4 Neut # (Auto) 10.1 H Lymph # (Auto) 1.0 Fult[place] # (Auto) 0.7 Eos # (Auto) 0.5 Baso # (Auto) 0.0 Sodium 147 Potassium 4.0 Chloride 104 Carbon Dioxide 28 Anion Gap 19 BUN 10 Creatinine 0.7 Est GFR ( Amer) > 60 Est GFR (Non-Af Amer) > 60 Random Glucose 94 Calcium 9.0 Total Bilirubin 0.5 AST 22 ALT 31 Alkaline Phosphatase 74 Total Protein 6.4 Albumin 3.2 L Globulin 3.2 Albumin/Globulin Ratio 1.0 Assessment & Plan (1) Cellulitis Status: Acute (2) Failure of outpatient treatment Status: Acute - Assessment and Plan (Free Text) Assessment: on IV antibiotics ID consult noted and appreciated Wound cult done Plan: Continue iv antibiotics and pain management pending cult results and repeat CBC - Date & Time Date: 09/20/17 Time: 11:50
--- NOTE | 2017-09-20 17:05 | CP.PCM.PN ---
Subjective - Date & Time of Evaluation Date of Evaluation: 09/20/17 Time of Evaluation: 17:00 - Subjective Subjective: iI D NOTE AFEBRILE FLUCTUANT AREA OPENED PLACED PACKING AWAIT CULTURE RESULTS Objective - Vital Signs/Intake and Output Vital Signs (last 24 hours): Temp Pulse Resp BP Pulse Ox 98.3 F 89 18 106/72 100 09/20/17 16:10 09/20/17 16:10 09/20/17 16:10 09/20/17 16:10 09/20/17 16:10 - Medications Medications: Current Medications Vancomycin HCl 1 gm/ Sodium (Chloride) 250 mls @ 166.667 mls/hr IVPB Q12 LEISA PRN Reason: Protocol Last Admin: 09/20/17 08:34 Dose: 166.667 mls/hr Gentamicin Sulfate/Sodium Chloride (Gentamicin 80mg/50ml Ns) 80 mg in 50 mls @ 50 mls/hr IVPB Q12 LEISA PRN Reason: Protocol Last Admin: 09/20/17 08:35 Dose: 50 mls/hr Ibuprofen (Motrin Tab) 600 mg PO Q6 PRN PRN Reason: Pain, Mild (1-3) Last Admin: 09/20/17 11:29 Dose: 600 mg Oxycodone/Acetaminophen (Percocet 5/325 Mg Tab) 1 tab PO Q4 PRN PRN Reason: Pain, moderate (4-7) Stop: 09/21/17 23:16 - Labs Labs: 09/20/17 06:40 09/20/17 06:40
--- NOTE | 2017-09-21 07:28 | CP.PCM.PN ---
Subjective - Date & Time of Evaluation Date of Evaluation: 09/21/17 Time of Evaluation: 07:23 - Subjective Subjective: Denies C/F and less pains still with pus comming out of her wound abcess Objective - Vital Signs/Intake and Output Vital Signs (last 24 hours): Temp Pulse Resp BP Pulse Ox 98.3 F 71 19 106/71 100 09/20/17 23:31 09/20/17 23:31 09/20/17 23:31 09/20/17 23:31 09/20/17 23:31 - Medications Medications: Current Medications Vancomycin HCl 1 gm/ Sodium (Chloride) 250 mls @ 166.667 mls/hr IVPB Q12 LEISA PRN Reason: Protocol Last Admin: 09/20/17 21:30 Dose: 166.667 mls/hr Gentamicin Sulfate/Sodium Chloride (Gentamicin 80mg/50ml Ns) 80 mg in 50 mls @ 50 mls/hr IVPB Q12 LEISA PRN Reason: Protocol Last Admin: 09/20/17 20:30 Dose: 50 mls/hr Ibuprofen (Motrin Tab) 600 mg PO Q6 PRN PRN Reason: Pain, Mild (1-3) Last Admin: 09/20/17 11:29 Dose: 600 mg Oxycodone/Acetaminophen (Percocet 5/325 Mg Tab) 1 tab PO Q4 PRN PRN Reason: Pain, moderate (4-7) Stop: 09/21/17 23:16 - Labs Labs: 09/20/17 06:40 09/20/17 06:40 - Head Exam Head Exam: ATRAUMATIC - Neck Exam Neck Exam: Full ROM - Respiratory Exam Respiratory Exam: NORMAL BREATHING PATTERN - GI/Abdominal Exam Additional comments: soft not distended no rebound Cellulitis area still with induraton but less erythrema and opeing in mid section still with some suppuration packing removed and area cleaned with H2O2 and repacked and clean dressing applied - Extremities Exam Additional comments: no edema or calf tenderness - Neurological Exam Neurological Exam: Alert, Awake, Oriented x3 Assessment and Plan (1) Cellulitis Status: Acute (2) Failure of outpatient treatment Status: Acute - Assessment and Plan (Free Text) Assessment: cellulatis appears improving Plan: Continue IV antibiotics and pending cult results OOB and ambulation
[2017-09-21] MEDS: Gentamicin 80mg/50ml NS 80 MG/50 ML BAG IVPB SCH ×2 (16:09→20:21)
[2017-09-22 06:27] LABS: BLOOD UREA NITROGEN 11 mg/dl (7-17); CALCIUM 9.1 mg/dL (8.4-10.2); GFR AFRICAN-AMERICAN > 60; GFR NON-AFRICAN AMERICAN > 60
--- NOTE | 2017-09-22 09:01 | CP.PCM.PN ---
Subjective - Date & Time of Evaluation Date of Evaluation: 09/22/17 Time of Evaluation: 08:56 - Subjective Subjective: c/o nausea but no vomiting Denies C/F voiding well BM+ Objective - Vital Signs/Intake and Output Vital Signs (last 24 hours): Temp Pulse Resp BP Pulse Ox 98.3 F 54 L 20 126/80 100 09/22/17 07:41 09/22/17 07:41 09/22/17 07:41 09/22/17 07:41 09/22/17 07:41 - Medications Medications: Current Medications Vancomycin HCl 1 gm/ Sodium (Chloride) 250 mls @ 166.667 mls/hr IVPB Q12 LEISA PRN Reason: Protocol Last Admin: 09/22/17 08:38 Dose: 166.667 mls/hr Gentamicin Sulfate/Sodium Chloride (Gentamicin 80mg/50ml Ns) 80 mg in 50 mls @ 50 mls/hr IVPB Q12 LEISA PRN Reason: Protocol Last Admin: 09/21/17 20:21 Dose: 50 mls/hr Ibuprofen (Motrin Tab) 600 mg PO Q6 PRN PRN Reason: Pain, Mild (1-3) Last Admin: 09/22/17 08:45 Dose: 600 mg - Labs Labs: 09/20/17 06:40 09/22/17 05:30 - Constitutional Appears: No Acute Distress - Head Exam Head Exam: ATRAUMATIC - Neck Exam Neck Exam: Full ROM - Respiratory Exam Respiratory Exam: NORMAL BREATHING PATTERN - Rectal Exam Additional comments: Area of cellulitis less erythrema and induration but still suppurating yellowish fluid Packing removed and area cleaned and repacked with iodoform gauze, and dressed No erythrema or induration on Pfanesteal scar. - Extremities Exam Additional comments: no edema or calf tenderness - Neurological Exam Neurological Exam: Alert, Awake, Oriented x3 - Psychiatric Exam Psychiatric exam: Normal Affect, Normal Mood Assessment and Plan (1) Cellulitis Status: Acute (2) Failure of outpatient treatment Status: Acute - Assessment and Plan (Free Text) Assessment: improving slightly Plan: Continue IV antibiotics and still pending abcess cult results Repeat CBC in am
[2017-09-22] MEDS: Gentamicin 80mg/50ml NS 80 MG/50 ML BAG IVPB SCH ×2 (09:57→20:13)
[2017-09-22] MEDS ORDERED: Iohexol 240 (50 ml) PO ONE (13:27)
--- NOTE | 2017-09-22 13:52 | CP.PCM.PN ---
Subjective - Date & Time of Evaluation Date of Evaluation: 09/22/17 Time of Evaluation: 13:50 - Subjective Subjective: I D NOTE AFEBRILE LESS DRAINAGE /ERYTHEMA WILL ORDER CT SCAN OF ABDOMEN/PELVIS TO BE SURE OF EXTENT OF INFECTION DISCUSSED C PATIENT EXAMINED AND REVIEWED CARE c HER Objective - Vital Signs/Intake and Output Vital Signs (last 24 hours): Temp Pulse Resp BP Pulse Ox 98.3 F 54 L 20 126/80 100 09/22/17 07:41 09/22/17 07:41 09/22/17 07:41 09/22/17 07:41 09/22/17 07:41 - Medications Medications: Current Medications Vancomycin HCl 1 gm/ Sodium (Chloride) 250 mls @ 166.667 mls/hr IVPB Q12 LEISA PRN Reason: Protocol Last Admin: 09/22/17 08:38 Dose: 166.667 mls/hr Gentamicin Sulfate/Sodium Chloride (Gentamicin 80mg/50ml Ns) 80 mg in 50 mls @ 50 mls/hr IVPB Q12 LEISA PRN Reason: Protocol Last Admin: 09/22/17 09:57 Dose: 50 mls/hr Ibuprofen (Motrin Tab) 600 mg PO Q6 PRN PRN Reason: Pain, Mild (1-3) Last Admin: 09/22/17 08:45 Dose: 600 mg - Labs Labs: 09/20/17 06:40 09/22/17 05:30
--- NOTE | 2017-09-22 13:55 | PQF GENQUE ---
This form is a permanent part of the medical record 09/22/17 Dr. Anguiano, 1) Would you please clarify if this is Cellulitis of the C- Section site ( Postop Wound Infection ) or Cellulitis of a different area of the abdomen? 2) Would you please clarify if the opening on the abdomen is of the site ( Dehiscence) or a different area of the abdomen ? The following documentation is noted in the medical record: Failed outpatient treatment for Cellulitis post C- Section . ID with the following documentation: Patient Post with Surgical Site Infection. Two weeks later she began developing redness around the side with some inflammation and a bubbling in the certain area or raised area in that area. There was no drainage from the wound site. Attending: Cellulitis at just below umb area but Pfanesteal incision clean and dry and healing well. + leakage on the mid area of pus like fluid and cleaned and packed with iodoform packing Clarification of your documentation is requested to better reflect the severity of illness and intensity of treatment of your patient. Indicators present PHYSICIAN'S RESPONSE Based on your medical judgment of the clinical indicators outlined above please clarify the following: [] Practitioner response [] If unable to determine, please check the box, sign and date. Present On Admission (POA) Indicator: [] Present at the time of admission [] Not present at the time of admission [] Clinically Undetermined In responding to this query, please exercise your independent professional judgment. The fact that a question is asked does not imply that any particular answer is desired or expected. Thank you for your clarification on this documentation. If you have any questions please call:extension [phone] * Thank you, Tisha Cook RN CDMP [facility]
[2017-09-22] MEDS ORDERED: Sodium Chloride 0.9% 100 ML ONE (18:19)
[2017-09-22] MEDS ORDERED: Iohexol 300 100 ML IJ ONE (18:19)
[2017-09-23 06:27] LABS: BASO # 0.1 K/uL (0.0-0.2); BASO % 1.2 % (0.0-2.0); EOS # 0.3 K/uL (0.0-0.7); EOS % 4.8 % (0.0-4.0); HEMOGLOBIN 11.5 g/dL (12.0-16.0); LYMPH # 1.6 K/uL (1.0-4.3); MEAN CELL VOLUME 88.7 fl (81.0-99.0); MEAN CORPUSCULAR HEMOGLOBIN 29.5 pg (27.0-31.0); MEAN CORPUSCULAR HGB CONC 33.3 g/dL (33.0-37.0); MEAN PLATELET VOLUME 7.2 fl (7.2-11.7); MONO # 0.5 K/uL (0.0-0.8); MONO % 7.5 % (0.0-10.0); NEUT # 3.9 K/uL (1.8-7.0); NEUT % 61.5 % (50.0-75.0); RBC 3.91 Mil/uL (3.80-5.20); RED CELL DISTRIBUTION WIDTH 13.6 % (11.5-14.5); WHITE BLOOD COUNT 6.3 K/uL (4.8-10.8)
[2017-09-23 06:47] LABS: BLOOD UREA NITROGEN 9 mg/dl (7-17); CALCIUM 8.8 mg/dL (8.4-10.2); GFR AFRICAN-AMERICAN > 60; GFR NON-AFRICAN AMERICAN > 60
[2017-09-23 06:48] LABS: ALB/GLOB RATIO 1.1 (1.0-2.1); ALBUMIN 3.3 g/dL (3.5-5.0); ALT/SGPT 38 U/L (9-52); AST/SGOT 16 U/L (14-36)
--- NOTE | 2017-09-23 08:07 | CP.PCM.PN ---
Subjective - Date & Time of Evaluation Date of Evaluation: 09/23/17 Time of Evaluation: 08:01 - Subjective Subjective: less nauseaous today, denies C/F Voiding well Objective - Vital Signs/Intake and Output Vital Signs (last 24 hours): Temp Pulse Resp BP Pulse Ox 97.5 F L 64 18 105/68 99 09/22/17 23:48 09/22/17 23:48 09/22/17 23:48 09/22/17 23:48 09/22/17 23:48 - Medications Medications: Current Medications Vancomycin HCl 1 gm/ Sodium (Chloride) 250 mls @ 166.667 mls/hr IVPB Q12 LEISA PRN Reason: Protocol Last Admin: 09/22/17 20:13 Dose: 166.667 mls/hr Gentamicin Sulfate/Sodium Chloride (Gentamicin 80mg/50ml Ns) 80 mg in 50 mls @ 50 mls/hr IVPB Q12 LEISA PRN Reason: Protocol Last Admin: 09/22/17 20:13 Dose: 50 mls/hr Ibuprofen (Motrin Tab) 600 mg PO Q6 PRN PRN Reason: Pain, Mild (1-3) Last Admin: 09/22/17 08:45 Dose: 600 mg - Labs Labs: 09/23/17 05:50 09/23/17 05:50 - Constitutional Appears: No Acute Distress - Head Exam Head Exam: ATRAUMATIC - Neck Exam Neck Exam: Full ROM - Respiratory Exam Respiratory Exam: NORMAL BREATHING PATTERN - GI/Abdominal Exam Additional comments: soft ND no rebound Abcess area less erythrema and induration less suppuration and packing removed and area cleaned and re-packed with iodoform gauze. Pfnesteal scar and area appears intact - Extremities Exam Additional comments: no edema or calf tenderness - Neurological Exam Neurological Exam: Alert, Awake, Oriented x3 Assessment and Plan (1) Cellulitis Status: Acute (2) Failure of outpatient treatment Status: Acute - Assessment and Plan (Free Text) Assessment: improving WBC count and general abcess area Plan: Continue IV antibiotics pain management and abcess care Pending Cat scan results Will discuss with ID after results
--- NOTE | 2017-09-23 08:44 | CT ---
PROCEDURE: CT Abdomen and Pelvis with contrast HISTORY: abdominal cellulitis COMPARISON: Abdomen pelvis CT examination with contrast 10/07/2013. TECHNIQUE: Contrast dose: Omnipaque 300, 90 cc Radiation dose: Total exam DLP = 430.95 mGy-cm. This CT exam was performed using one or more of the following dose reduction techniques: Automated exposure control, adjustment of the mA and/or kV according to patient size, and/or use of iterative reconstruction technique. FINDINGS: LOWER THORAX: Trace dependent atelectasis left base with none on the right. LIVER: Unremarkable. No gross lesion or ductal dilatation. GALLBLADDER AND BILE DUCTS: Prior cholecystectomy. Normal-appearing common bile duct caliber. PANCREAS: Unremarkable. No gross lesion or ductal dilatation. SPLEEN: Unremarkable. ADRENALS: Unremarkable. No mass. KIDNEYS AND URETERS: Unremarkable. No hydronephrosis. No solid mass. VASCULATURE: Unremarkable. No aortic aneurysm. BOWEL: Unremarkable. No obstruction. No gross mural thickening. APPENDIX: Normal appendix. PERITONEUM: Unremarkable. No free fluid. No free air. LYMPH NODES: Unremarkable. No enlarged lymph nodes. BLADDER: Unremarkable. REPRODUCTIVE: Uterus is only mildly enlarged in the interval with inhomogeneous enhancement status post prior Caesarean section proximally 5 weeks previously, reportedly. Limited reactive changes seen the anterior Mesentery at the level of the prior hysterectomy. Note is made of emphysematous change with hyperdensity at the incisional site within the superficial and deep subcutaneous soft tissue in a right paracentral plane suspicious for either surgical packing or an abscess. Clinically correlate further. Thickened dermis is appreciated throughout the anterior abdominal wall at the level of the incision site is well is compatible with cellulitis. BONES: No acute fracture. OTHER FINDINGS: None. IMPRESSION: Examination remarkable only for extra abdominal/ extra pelvic findings potentially reflecting surgical packing or abscess at the incisional site at the right parasagittal inferior pelvis anterior abdominal wall, the site of prior apparent Caesarean section approximately 5 weeks previously. Clinically correlate further. No peritoneal abscess. Inhomogeneous enhancement throughout the uterus is noted which is nonspecific but related to recent /delivery. Further clinical correlation recommended.
[2017-09-23] MEDS: Gentamicin 80mg/50ml NS 80 MG/50 ML BAG IVPB SCH ×2 (09:28→20:59)
[2017-09-23 23:35] VITALS: RESP 20
[2017-09-24 08:23] VITALS: BP 113/75; PULSE 67; TEMP 98; O2SAT 100
[2017-09-24] MEDS: Gentamicin 80mg/50ml NS 80 MG/50 ML BAG IVPB SCH (08:44)
== END 2017-09-24 15:00 | disposition home or self-care (01) | DRG 278 ==
LOC: H.ER 17:25 → H.ERHOLD 18:32 → H.MEDSURG1 22:05
PROVIDERS: ADMIT Specialist; ATTEND Specialist
DX: L03.311 Cellulitis of abdominal wall (principal); Z88.0 Allergy status to penicillin